=== PATIENT | female | born 1990 | race Caucasian/White ===

== ENCOUNTER → 2021-03-18 15:33 | Outpatient (CLI) | payer MEDICAID, SELFPAY ==
[2021-03-18 15:04] VITALS: BMI 39.6
[2021-03-18 17:06] LABS: Thyroid Stim Hormone (TSH) 3.74 uIU/mL (0.358-3.74)
[2021-03-24 03:06] LABS: Testosterone, % Free 1.84 % (0.50-2.80); Testosterone, Free 0.66 ng/dL (0.10-0.85); Testosterone, Total 36 ng/dL (13-71)
[2021-03-25 11:32] LABS: Adrenocorticotropic Hormone 39.3 pg/mL (7.2-63.3); Thyroid Peroxidase AB < 9 IU/mL (0-34)
[2021-03-29 10:07] LABS: 17-Hydroxyprogesterone < 10 ng/dL (.)
== END ==
PROVIDERS: Referring Provider Internal Medicine Endocrinology, Diabetes & Metabolism; Visit Provider Internal Medicine Endocrinology, Diabetes & Metabolism
DX: E24.9 Cushing's syndrome, unspecified (principal)
CPT/HCPCS: 36415; 82024; 82533; 82627; 83498; 84402; 84403; 84443; 86376; 82626

== ENCOUNTER → 2021-03-21 16:11 | Outpatient (CLI) | payer MEDICAID, SELFPAY ==
[2021-03-18 15:04] VITALS: BMI 39.6
[2021-03-28 12:08] LABS: Cortisol, Urinary Free 8 ug/L (Undefined)
[2021-03-29 08:29] LABS: Cortisol, Free 24Ur 12 ug/24 hr (6-42)
== END ==
PROVIDERS: Referring Provider Internal Medicine Endocrinology, Diabetes & Metabolism; Visit Provider Internal Medicine Endocrinology, Diabetes & Metabolism
DX: E24.9 Cushing's syndrome, unspecified (principal)
CPT/HCPCS: 81050; 82530

== ENCOUNTER 2022-09-24 19:04 | Emergency (ER) | payer MEDICAID, SELFPAY ==
[2022-09-24 19:05] VITALS: TEMP -17.7; TEMP 0; BMI 45.1
--- NOTE | 2022-09-24 20:13 | EX.ED.CRITCA ---
HPI History of Present Illness Chief Complaint: CPR Informant: EMS Onset/Context/Timing Onset: Today Narrative Narrative: According to EMS, they were called because the patient had a syncopal episode at home. They were told that the patient was just diagnosed with an E. coli infection. They were not told what type of infection this was but that the prescription for an antibiotic had been sent and the patient had not yet started it or had the medication. When EMS got there, the patient was awake and talking to one of the paramedics, when she lost consciousness again and lost her pulse and they started ACLS/CPR. They do noted no suspicion for trauma/injury. They intubated the patient and continued ACLS in route, calling for medical direction, having PEA throughout ACLS, giving a total of 6 rounds of epinephrine and 1 amp of sodium bicarbonate. After all of this, the patient was in PEA with an end-tidal CO2 of 30. Given that it was that high, medical direction provided by nursing advise them to continue transporting to the ED for further evaluation according to the protocols. This was all done. [facility] Medical History Adrenal hyperplasia Anxiety Autism Hypercortisolism Hypertension Intermittent explosive disorder in adult Home Medications buspirone 10 mg tablet 10 mg PO TID 02/12/21 [History Last Taken Unknown] cholecalciferol (vitamin D3) 50 mcg (2,000 unit) capsule 50 mcg PO DAILY 02/12/21 [History Last Taken Unknown] drospirenone 3 mg-ethinyl estradiol 0.03 mg tablet (Cheri (28)) 1 tab PO DAILY 02/12/21 [History Last Taken Unknown] lamotrigine 25 mg tablet (Lamictal) 25 mg PO BID 02/12/21 [History Last Taken Unknown] paroxetine HCl 40 mg tablet (Paxil) 40 mg PO DAILY 02/12/21 [History Last Taken Unknown] Allergy/AdvReac Type Severity Reaction Status Date / Time No Known Allergies Allergy Verified 03/18/21 15:11 Family History Other Arthritis Autoimmune disorder Cancer Depression Hypertension Melanoma Social History Smoking Status: Never smoker alcohol intake: never substance use type: does not use what type of physical activity do you participate in: none ROS ROS ED Review of Systems ROS Unobtainable: due to mental status EXAM Physical Exam Const Vital Signs: 09/24/22 19:05 09/24/22 19:10 Temperature 0 F L Temperature Source Oral Oxygen Delivery Method Ambu-Bag Positive well nourished, well developed and obese General Appearance ED: well developed and pallor Orientation / Consciousness: obtunded Exam Limitations: altered mental status Nutritional Appearance: obese HEENT normocephalic, atraumatic and cyanosis of lips/distal nose Eyes Pupil: fixed Positive for bilateral and not reactive Positive for bilateral Neck supple Chest Wall Chest Narrative: Atraumatic Resp Resp Narrative: No spontaneous respirations. Breath sounds are bilaterally with bagging. Cardio Cardio Narrative: No heart sounds. Central pulses palpable with CPR only. GI non-distended Palpation: soft Neuro Neuro Narrative: Obtunded and flaccid x4. GCS 3 T. Skin General Skin Exam: pallor Lesions: no lesions Rashes: no rashes MDM MDM MDM Narrative Medical decision making narrative: CPR was continued via Carmelo device during and after the EMS handoff. The device was paused briefly while we transferred the patient to the ED bed, noting that the rhythm was asystole. I prepped a bedside ultrasound after my primary survey, and at that time the Carmelo device was paused and again we noted asystole. There were rare agonal beats. There is no pericardial effusion on my cardiac short axis ultrasound, and no cardiac movement even with the agonal beats. Airway appears to be intact and there is no signs of trauma, however I think further efforts would be futile especially given that EMS has been working on her for about 35 minutes upon their arrival to the ED. Therefore she was declared at 1908. Staff discussed with the livestock farmers who agreed to release the body, and discussed with Dr. Cheema who is on-call for the patient's PCP Dr. Lei. Mother arrived later who I spoke with at length, and states that the E. coli infection that she recently was diagnosed with was related to acute diarrhea. Critical Care Time Critical Care Time: Yes Critical care time (excluding procedures): 30-74 minutes (36 min not including Ultrasound procedure), Including time spent:, Discussing w/Patient &/or Family/Cardiothoracic Icu Rn (mother, who later arrived outside pt's room) and Performing Direct Patient Care at Bedside (supervising ACLS) Discharge Plan Triage Chief Complaint: CPR ED Provider: Toni Yung Dx/Rx/DC Orders Clinical Impression: Cardiopulmonary arrest, Syncope Prescriptions: No Action drospirenone-ethinyl estradiol [Cheri (28)] 3-0.03 mg tablet 1 tab PO DAILY paroxetine HCl [Paxil] 40 mg tablet 40 mg PO DAILY buspirone 10 mg tablet 10 mg PO TID lamotrigine [Lamictal] 25 mg tablet 25 mg PO BID cholecalciferol (vitamin D3) 50 mcg (2,000 unit) capsule 50 mcg PO DAILY Primary Care Provider: Care Physician,No Primary Referrals: Care Physician,No Primary [Primary Care Provider] - Disposition Disposition:
--- NOTE | 2022-09-24 21:23 | ED.RN ---
Addendum entered by Richard Nolan 09/24/22 21:24: fatmata at bedside at 2110 Original Note: Fatmata home here to picker packer patient.
== END 2022-09-24 21:17 ==
PROVIDERS: Emergency Provider Emergency Medicine; Visit Provider Emergency Medicine
DX: I46.9 Cardiac arrest, cause unspecified (principal); R55 Syncope and collapse; E66.9 Obesity, unspecified
CPT/HCPCS: 92950; 99281; J7030